=== PATIENT | female | born 1935 | race Caucasian/White ===

== ENCOUNTER 2017-03-26 00:02 | Day surgery (SDC) | payer OTHER ==
[~2017-03-26] VITALS: Ht 162.6 cm; Wt 58.0 kg
[2017-03-26] VITALS (11 sets, daily range): BP systolic 101–132; BP diastolic 65–83; PULSE 60–66; RESP 8–17; O2SAT 97–100
[~2017-03-26 00:02] MED LIST: CHOL100043 PO; DABI150C PO; GABA-504 PO; HYDR12.5 PO; LEVO75TA4 PO; MAGN250T37 PO; METR45GE TOP; POTA99TA21 PO; RUXO10TA PO; [UNRECOGNIZED DRUG - OTHER] PO
--- NOTE | 2017-03-26 06:00 | NUR ---
ADMISSION NOTE FEMALE PT ADMITTED FOR GENERATOR CHANGE. DISCUSSED PLAN OF CARE WITH PT AND . SEE ADMIT AND FLOW SHEET
[2017-03-26 06:52] LABS: BASOPHILS % (AUTO) 0.2 % (0-3); EOSINOPHILS % (AUTO) 0.5 % (0-5); MONOCYTES % (AUTO) 14.2 % (4-12); Mean Corpuscular Hemoglobin 31.8 pg (27.0-35.0); Mean Corpuscular Volume 98.4 fL (81-100); NEUTROPHILS % (AUTO) 62.3 % (40-74); Platelet Count 318 bil/L (150-400)
[2017-03-26] MEDS ORDERED: Vancomycin Inj 1,000 MG in IV Premix 1 EACH IV SCH (07:00)
[2017-03-26] MEDS ORDERED: 0.9% Sodium Chloride 1,000 ML IV SCH ×2 (07:00→09:46)
[2017-03-26] MEDS ORDERED: Heparin 10,000 Unit/1,000 mL NS Premix IV ONE (08:09)
[2017-03-26] MEDS ORDERED: Bupivacaine-MPF 0.5% 30 mL Inj ONE (08:09)
[2017-03-26] MEDS ORDERED: 0.9% Sodium Chloride 250 ML ONE (08:12)
[2017-03-26] MEDS ORDERED: Water for Injection 50 ML IV ONE (08:12)
[2017-03-26] MEDS ORDERED: fentaNYL-PF 50 mCg/mL 2 mL Inj ONE (08:40)
[2017-03-26] MEDS ORDERED: Vancomycin 1,000 mg Inj ONE (08:44)
--- NOTE | 2017-03-26 09:45 | NUR ---
POST PROCEDURE NOTE RETURNED FROM CATERING ADMINISTRATIVE ASSISTANT. SEE FLOW SHEET
[2017-03-26] MEDS ORDERED: Ondansetron 2 mg/mL 2 mL Inj IVPUSH PRN (09:50)
[2017-03-26] MEDS ORDERED: HYDROcodone-APAP 5-325 mg Tablet PO PRN (09:50)
--- NOTE | 2017-03-26 10:37 | OP ---
[address] [address] OPERATIVE REPORT PATIENT: EDMUNDO KERR : 1935 MR#: [id number] ADMIT: 03/26/2017 JOB ID: [id number] DATE OF SURGERY: 03/26/2017 PREOPERATIVE DIAGNOSIS(ES): 1. Chronic atrial fibrillation. 2. Pacemaker battery depletion. POSTOPERATIVE DIAGNOSIS(ES): 1. Chronic atrial fibrillation. 2. Pacemaker battery depletion. PROCEDURES PERFORMED: 1. Pacemaker generator replacement with exchange of a dual-chamber pacemaker generator for a single-chamber pacemaker generator and capping of chronic right atrial lead. 2. Pocket revision. SURGEON: Michael Castaneda MD, electrophysiology. PARTNER MARKETING INTERN: Petra Poe. IMPLANTED DEVICE: [employer] pulse generator model RZ8088, serial #[id number]. EXPLANTED DEVICE: [employer] pulse generator model 5816, serial #[id number]. CHRONIC DEVICES: 1. Right atrial lead [employer] TC, 46 cm, serial #[id number] (cap usable). 2. RV lead [employer] 1788TC, 52 cm, serial #[id number]. ANESTHESIA: Bolus dosing of fentanyl and Versed were utilized for an appropriate level of conscious sedation. INDICATION: The patient is a pleasant 82-year-old woman whose pacemaker has reached elective replacement indicator. After discussion of risks and benefits of generator replacement, she opted to proceed. She has been programmed VVIR for several years now, and I am changing her generator from a dual to a single chamber, capping the right atrial lead. PROCEDURAL DESCRIPTION: Following informed signed consent, the patient was taken to the EP laboratory in a fasting, nonsedated state where she was prepped and draped in the usual sterile fashion. The left infraclavicular surgical scar was infiltrated with 40 cc of a 50/50 mixture of bupivacaine and lidocaine. Once adequate anesthesia had been achieved, a 3 cm incision was performed overlying the previous surgical scar. Dissection was carried to the capsule, and the lead data entry operator freed loose of adhesions. The leads were disconnected from the generator, inspected and showed to be intact. Medial and inferior aspects of the capsule infiltrated with more anesthetic, and pocket was scored and extended to accommodate the different footprint to the new generator. The pocket was copiously irrigated with antibiotic solution. The atrial lead was capped and secured to the floor of the capsule using 1-0 Ti-Cron suture. The RV lead was connected to a new ICD pulse generator, which was then used to test the lead. R waves were low in the bipolar configuration but acceptable at 4.6 in unipolar configuration. The entire system was then placed into the capsule, and the generator was secured to the floor of the capsule using 1-0 Ti-Cron suture. The incision was closed with running layers of absorbable suture. The wound was dressed with skin adhesive and a small dressing at the end of procedure. Needle, sponge and instrument counts were all correct. ESTIMATED BLOOD LOSS: Negligible. DEVICE MEASURED DATA: 4.6 mV, R waves in the unipolar configuration, 2350 ohms, 1.625 V at 0.4 msec. FINAL PROGRAM PARAMETERS: VVIR 60 beats per minute. IMPRESSION: Successful pacemaker generator placement. PLAN: 1. Recovery and discharge from the [facility]. 2. Doxycycline 100 mg p.o. daily x7 days. 3. Wound check in one week. ATTENDING STATEMENT: Michael Castaneda MD, electrophysiology attending, was present for and supervised/performed all aspects of this procedure.
--- NOTE | 2017-03-26 12:40 | NUR ---
DISCHARGE NOTE UP IN ROOM. TOLERATED WELL. NO COMPLAINTS. INSTRUCTIONS GIVEN. HOME WITH
== END 2017-03-26 23:59 | disposition home or self-care (01) ==
LOC: SOUO 00:02
PROVIDERS: ATTEND Internal Medicine Cardiovascular Disease
DX: Z45.010 Encounter for checking and testing of cardiac pacemaker pulse generator [battery] (principal); I49.5 Sick sinus syndrome; I48.2 Chronic atrial fibrillation; I44.7 Left bundle-branch block, unspecified; E03.9 Hypothyroidism, unspecified; I34.0 Nonrheumatic mitral (valve) insufficiency; D45 Polycythemia vera; Z79.01 Long term (current) use of anticoagulants
CPT/HCPCS: 33227; 36415; 80048; 85025; 85610; 93005; 99152; 99153; C1786; J1644; J2250; J3010; J3370; J7050